=== PATIENT | male | born 1950 ===

== ENCOUNTER 2018-06-20 11:28 | Outpatient (CLI) | payer OTHER ==
[~2018-06-20] VITALS: Ht 188 cm; Wt 108.9 kg
== END 2018-06-20 11:45 | disposition home or self-care (01) ==
LOC: OFIC 805 11:28
DX: J34.89 Other specified disorders of nose and nasal sinuses (principal); R09.81 Nasal congestion; J32.8 Other chronic sinusitis

== ENCOUNTER → 2018-06-20 13:22 | Outpatient (CLI) | payer OTHER | END | disposition home or self-care (01) | LOC: LAB 13:22 | DX: J34.2 Deviated nasal septum (principal) ==

== ENCOUNTER 2018-07-04 10:52 | Outpatient (CLI) | payer OTHER | END 2018-07-04 11:15 | disposition home or self-care (01) | LOC: OFIC 805 10:52 | DX: J01.80 Other acute sinusitis (principal); J34.89 Other specified disorders of nose and nasal sinuses; R09.81 Nasal congestion ==